=== PATIENT | female | born 1955 | race Caucasian/White ===

== ENCOUNTER 2018-04-29 07:39 | Day surgery (SDC) | payer BC, MEDICARE ==
[~2018-04-29 07:39] MED LIST: Lactated Ringers 1,000 ML IV SCH; Lidocaine 1% 4 ML ONE; Lidocaine 1%/Sod Bicarbonate in NS 8.4% 1 ML Syringe IDERM PRN; Propofol 200 MG/20 ML SDV ONE; Sodium Chloride 0.9% 10 ML Syringe FLUSH PRN; fentaNYL 100 MCG/2 ML SDV ONE
--- NOTE | 2018-04-29 08:07 | PCM.PREANE ---
Preanesthetic Assessment - Anesthesia/Transfusion/Family Hx Anesthesia History: Prior Anesthesia Without Reaction Family History of Anesthesia Reaction: No - Review of Systems General: No Symptoms Pulmonary: No Symptoms Cardiovascular: No Symptoms Gastrointestinal: No Symptoms Neurological: Other (Generalized soreness. Lower back pain today. She believes from her statin therapy. ) Other: Reports: None - Physical Assessment NPO Status Date: 04/28/18 NPO Status Time: 20:30 Pulse: 72 O2 Sat by Pulse Oximetry: 97 Respiratory Rate: 16 Blood Pressure: 135/77 Temperature: 36.1 C Weight: 75 kg ASA Class: 2 Mental Status: Alert & Oriented x3 Airway Class: Mallampati = 1 Dentition: Reports: Normal Dentition Thyro-Mental Finger Breadths: 3 Mouth Opening Finger Breadths: 3 ROM/Head Extension: Full Lungs: Clear to Auscultation, Normal Respiratory Effort Cardiovascular: Regular Rate, Regular Rhythm - Allergies Allergies/Adverse Reactions: Allergies Allergy/AdvReac Type Severity Reaction Status Date / Time clarithromycin AdvReac Vomiting Verified 04/28/18 13:09 - Acknowledgements Anesthesia Type Planned: MAC Pt an Appropriate Candidate for the Planned Anesthesia: Yes Alternatives and Risks of Anesthesia Discussed w Pt/Guardian: Yes Pt/Guardian Understands and Agrees with Anesthesia Plan: Yes PreAnesthesia Questionnaire HEENT History: Reports: Impaired Vision Cardiovascular History: Reports: High Cholesterol Respiratory History: Reports: Other (See Below) Other Respiratory History: cough bronchitis Gastrointestinal History: Reports: 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 OB/BYN History: hot flashes, pelvic pain, vaginal dryness, hysteroscopy, Musculoskeletal History: Reports: Other (See Below) Other Musculoskeletal History: right knee meniscus tear Neurological History: Reports: None Psychiatric History: Reports: None Endocrine/Metabolic History: Reports: None Hematologic History: Reports: None Immunologic History: Reports: None Oncologic (Cancer) History: Reports: None Dermatologic History: Reports: None - Past Surgical History Head Surgeries/Procedures: Reports: None HEENT Surgical History: Reports: Oral Surgery, Tonsillectomy Respiratory Surgical History: Reports: None GI Surgical History: Reports: Cholecystectomy, Colonoscopy Female Surgical History: Reports: Oophorectomy Endocrine Surgical History: Reports: None Neurological Surgical History: Reports: None Musculoskeletal Surgical History: Reports: None Oncologic Surgical History: Reports: None Dermatological Surgical History: Reports: None - SUBSTANCE USE Smoking Status *Q: Never Smoker Recreational Drug Use History: No - HOME MEDS Home Medications: Home Meds Multivitamin with Minerals [Multiple Vitamin] 1 tab PO DAILY 12/03/13 [History] Venlafaxine [Effexor XR] 37.5 mg PO DAILY 12/03/13 [History] Ibuprofen/Diphenhydramine Cit [Advil Pm Caplet] 1 - 2 tab PO BEDTIME PRN [History] Simvastatin 20 mg PO DAILY 04/28/18 [History] Vit A/Vit C/Vit E/Zinc/Copper [Preservision] 1 tab PO BID 04/28/18 [History] - CURRENT (IN HOUSE) MEDS Current Meds: Current Medications Lactated Ringer's (Ringers, Lactated) 1,000 mls @ 125 mls/hr IV ASDIRECTED TORO Stop: 04/29/18 23:00 Lidocaine/Sodium Bicarbonate (Buffered Lidocaine 1% In Ns 8.4%) 0.25 ml IDERM ONETIME PRN PRN Reason: Prior to IV Start Stop: 04/29/18 18:00 Sodium Chloride (Saline Flush) 10 ml FLUSH ASDIRECTED PRN PRN Reason: Keep Vein Open Stop: 04/29/18 18:00 Discontinued Medications Fentanyl (Sublimaze) Confirm Administered Dose 100 mcg .ROUTE .STK-MED ONE Stop: 04/29/18 07:28 Lidocaine HCl (Xylocaine-Mpf 1%) Confirm Administered Dose 4 mls @ as directed .ROUTE .STK-MED ONE Stop: 04/29/18 07:28 Propofol (Diprivan 20 Ml) Confirm Administered Dose 400 mg .ROUTE .STK-MED ONE Stop: 04/29/18 07:27
--- NOTE | 2018-04-29 09:08 | PCM.HP ---
H&P History of Present Illness - General Date of Service: 04/29/18 Source of Information: Patient History Limitations: Reports: No Limitations - History of Present Illness Initial Comments - Free Text/Narative: 62 yo female, had undergone colonoscopy for screening about 5 year ago, found to have a tubular adenoma, was recommended to repeat in 5 years. She is here to repeat here colonoscopy today. She was seen in clinic in January 2018, and requires an update to her H&P. She denies any changes to her health since her clinic visit two months ago. She was able to complete the [employer] miniDaTly prep without difficulty. - Related Data Allergies/Adverse Reactions: Allergies Allergy/AdvReac Type Severity Reaction Status Date / Time clarithromycin AdvReac Vomiting Verified 04/29/18 08:30 Home Medications: Home Meds Multivitamin with Minerals [Multiple Vitamin] 1 tab PO DAILY 12/03/13 [History] Venlafaxine [Effexor XR] 37.5 mg PO DAILY 12/03/13 [History] Ibuprofen/Diphenhydramine Cit [Advil Pm Caplet] 1 - 2 tab PO BEDTIME PRN [History] Simvastatin 20 mg PO DAILY 04/28/18 [History] Vit A/Vit C/Vit E/Zinc/Copper [Preservision] 1 tab PO BID 04/28/18 [History] Past Medical History HEENT History: Reports: Impaired Vision Cardiovascular History: Reports: High Cholesterol Other Respiratory History: cough bronchitis Gastrointestinal History: Reports: 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 OB/BYN History: hot flashes, pelvic pain, vaginal dryness, hysteroscopy, Other Musculoskeletal History: right knee meniscus tear Neurological History: Reports: None Psychiatric History: Reports: None Endocrine/Metabolic History: Reports: None Hematologic History: Reports: None Immunologic History: Reports: None Oncologic (Cancer) History: Reports: None Dermatologic History: Reports: None - Past Surgical History Head Surgeries/Procedures: Reports: None HEENT Surgical History: Reports: Oral Surgery, Tonsillectomy Respiratory Surgical History: Reports: None GI Surgical History: Reports: Cholecystectomy, Colonoscopy Female Surgical History: Reports: Hysterectomy, Oophorectomy Endocrine Surgical History: Reports: None Neurological Surgical History: Reports: None Musculoskeletal Surgical History: Reports: None Oncologic Surgical History: Reports: None Dermatological Surgical History: Reports: None Social & Family History - Tobacco Use Smoking Status *Q: Never Smoker - Caffeine Use Caffeine Use: Reports: Coffee, Soda - Recreational Drug Use Recreational Drug Use: No Drug Use in Last 12 Months: No H&P Review of Systems - Review of Systems: Review Of Systems: ROS reveals no pertinent complaints other than HPI. Exam - Exam Exam: See Below - Vital Signs Vital Signs: Last Vital Signs Temp 36.1 C 04/29/18 08:06 Pulse 72 04/29/18 08:06 Resp 16 04/29/18 08:06 BP 135/77 04/29/18 08:06 Pulse Ox 97 04/29/18 08:06 Weight: 75 kg - Exam General: Alert, Oriented, Cooperative HEENT: Conjunctiva Clear Lungs: Clear to Auscultation, Normal Respiratory Effort Cardiovascular: Regular Rate, Regular Rhythm, Normal S1, Normal S2. No: Systolic Murmur GI/Abdominal Exam: Soft, Non-Tender, No Distention, Other (well-healed low midline surgical scar) Extremities: Normal Inspection - Problem List (1) Colon cancer screening SNOMED Code(s): 285251552, [id number] ICD Code: Z12.11 - ENCOUNTER FOR SCREENING FOR MALIGNANT NEOPLASM OF COLON Status: Acute Current Visit: Yes Problem List Initiated/Reviewed/Updated: Yes Orders Last 24hrs: Active Orders 24 hr Category Date Time Status Peripheral IV Care [RC] . DIRECTED Care 04/29/18 07:16 Active Verify Patient Consent Obtain [RC] ASDIRECTED Care 04/29/18 07:16 Active Lactated Ringers [Ringers, Lactated] 1,000 ml Med 04/29/18 07:16 Active IV ASDIRECTED Lidocaine 1%/Sod Bicarbonate [Buffered Lidocaine 1% in Med 04/29/18 07:16 Active NS 8.4%] 0.25 ml IDERM ONETIME PRN Sodium Chloride 0.9% [Saline Flush] Med 04/29/18 07:16 Active 10 ml FLUSH ASDIRECTED PRN Medication Administration Instruction [OM.PC] Routine Oth 04/29/18 07:16 Ordered Peripheral IV Insertion Adult [OM.PC] Routine Oth 04/29/18 07:16 Ordered Medication Orders Lactated Ringer's (Ringers, Lactated) 1,000 mls @ 125 mls/hr IV ASDIRECTED TORO Stop: 04/29/18 23:00 Last Admin: 04/29/18 08:05 Dose: 125 mls/hr Lidocaine/Sodium Bicarbonate (Buffered Lidocaine 1% In Ns 8.4%) 0.25 ml IDERM ONETIME PRN PRN Reason: Prior to IV Start Stop: 04/29/18 18:00 Last Admin: 04/29/18 08:04 Dose: 0.25 ml Sodium Chloride (Saline Flush) 10 ml FLUSH ASDIRECTED PRN PRN Reason: Keep Vein Open Stop: 04/29/18 18:00 Assessment/Plan Comment:: 62 yo female, s/p distant hysterectomy, h/o tubular adenoma on her last screening colonoscopy 5 years ago, requires repeat screening colonoscopy. - The patient was consented for colonoscopy with possible biopsy. Indications, risks, and benefits were discussed with the patient in detail. Risks include bleeding, infection, damage to the GI tract, need for additional procedures, missed abnormalities, and inability to complete the procedure. Troy Johnson M.D., F.A.C.S. General Surgery Pager: [phone]
[2018-04-29] MEDS ORDERED: Ondansetron 4 MG/2 ML SDV ONE (09:15)
--- NOTE | 2018-04-29 09:48 | PCM48HPAN ---
Post Anesthesia Note - EVALUATION WITHIN 48HRS OF ANESTHETIC Vital Signs in Normal Range: Yes Patient Participated in Evaluation: Yes Respiratory Function Stable: Yes Airway Patent: Yes Cardiovascular Function Stable: Yes Hydration Status Stable: Yes Pain Control Satisfactory: Yes Nausea and Vomiting Control Satisfactory: Yes Mental Status Recovered: Yes Pulse Rate: 69 SaO2: 94 Resp Rate: 16 Temperature: 97.8 C Blood Pressure: 123/75
--- NOTE | 2018-04-29 09:50 | PCM.OPNOTE ---
- General Post-Op/Procedure Note Date of Surgery/Procedure: 04/29/18 Operative Procedure(s): colonoscopy with biopsy Findings: 1) moderate sigmoid divertiulcosis 2) multiple small sessile rectal polyps Pre Op Diagnosis: screening colonoscopy (history of tubular adenoma) Post-Op Diagnosis: screening colonoscopy (history of tubular adenoma) Anesthesia Technique: MAC Primary Surgeon: Troy Johnson Anesthesia Provider: Pauline Arellano Pathology: rectal polyp #1 rectal polyp #2 Complications: None Condition: Good Free Text/Narrative:: Indications for surgery: The patient is 62 yo female, due for a repeat colonoscopy. Her last colonoscopy was 5 years ago, at which time, there was removal of a tubular adenoma. The patient was consented for colonoscopy with possible biopsy. Indications, risks, and benefits were discussed with the patient in detail. Description of procedure: After surgical consent was verified, the patient was brought to the main OR. A surgical time-out was performed to verify proper patient and proper procedure. Anesthesia performed monitored anesthesia care. A digital rectal exam was performed, which was normal. The colonoscope was inserted into the anus and advanced through the colon to the cecum. The terminal ileum was intubated, and it appeared normal. Location of the cecum was confirmed by presence of the appendiceal orifice and by presence of the ileocecal valve. The scope was then withdrawn, with inspection of the colonic mucosa. Retroflexion was performed in the rectum. There was moderate sigmoid diverticulosis. There were multiple 5 mm or smaller polyps in the rectum, some of which were removed and sent off as specimen. The remainder of the colon and rectum was normal. Withdrawal time was greater than 6 minutes, including time spent performing polypectomy. Blood loss was minimal. Prep was good. The patient tolerated the procedure well, was brought out of anesthesia, and transported to the PACU in stable condition. Troy Johnson M.D., F.A.C.S. General Surgery Pager: [phone]
== END 2018-04-29 11:20 | disposition home or self-care (01) ==
LOC: JD.SDS 07:39
PROVIDERS: ATTEND Student in an Organized Health Care Education/Training Program
DX: Z12.11 Encounter for screening for malignant neoplasm of colon (principal); K62.1 Rectal polyp; K57.30 Diverticulosis of large intestine without perforation or abscess without bleeding; E78.00 Pure hypercholesterolemia, unspecified; Z86.010 Personal history of colon polyps; Z79.899 Other long term (current) drug therapy; Z88.1 Allergy status to other antibiotic agents
CPT/HCPCS: 45380; J2405; J2704; J3010; J7120; 00811; J2001

== ENCOUNTER 2025-02-27 01:11 | Emergency (ER) | payer MEDICARE, BC ==
[2025-02-27] MEDS: Ketorolac 30 MG/ML SDV IM ONE (02:12)
[2025-02-27] MEDS: HYDROmorphone 1 MG/ML Syringe IM ONE (03:46)
== END 2025-02-27 04:47 | disposition home or self-care (01) ==
LOC: JD.ED 01:11
DX: M25.561 Pain in right knee (principal); M06.9 Rheumatoid arthritis, unspecified; E78.00 Pure hypercholesterolemia, unspecified; Z88.1 Allergy status to other antibiotic agents; Z79.899 Other long term (current) drug therapy; Z90.49 Acquired absence of other specified parts of digestive tract; Z90.710 Acquired absence of both cervix and uterus
CPT/HCPCS: 73564; 93971; 96372; 99284; J1171; J1885